=== PATIENT | female | born 1950 | race Caucasian/White ===

== ENCOUNTER → 2018-01-14 | Outpatient (CLI) | payer OTHER, MEDICARE | LOC: M.RAD 09:10 | DX: M47.896 Other spondylosis, lumbar region (principal) ==

== ENCOUNTER → 2018-11-22 | Outpatient (CLI) | payer OTHER | LOC: M.ULTRA 13:14 | DX: E04.1 Nontoxic single thyroid nodule (principal) ==

== ENCOUNTER → 2019-02-18 | Outpatient (CLI) | payer OTHER | LOC: M.LAB 05:36 | DX: E87.6 Hypokalemia (principal) ==

== ENCOUNTER → 2021-12-25 | Outpatient (CLI) | payer OTHER | LOC: M.ULTRA 07:39 | PROVIDERS: ATTEND Specialist | DX: M79.18 Myalgia, other site (principal) ==